=== PATIENT | female | born 2000 | race Hispanic/Latino ===

== ENCOUNTER 2024-01-14 20:59 | Emergency (ER) | payer OTHER ==
[~2024-01-14] VITALS: Ht 152.4 cm; Wt 56.7 kg
[~2024-01-14 20:59] MED LIST: MACROBID 100 M100 MG PO
[2024-01-14 21:07] VITALS: PULSE 85; RESP 18; TEMP 98.8; O2SAT 98
[2024-01-14] MEDS ORDERED: DOXYCYCLINE HY100 MG PO (21:28)
[2024-01-14] MEDS ORDERED: MACROBID 100 M100 MG PO (21:28)
[2024-01-14] MEDS ORDERED: METRONIDAZOLE500 MG PO (21:34)
[2024-01-14] MEDS: CEFTRIAXONE 500 MG VIAL IM ONE (21:46)
[2024-01-16 23:08] LABS: CHLAMYDIA NUC AMP Negative (Negative)
== END 2024-01-14 22:00 | disposition home or self-care (01) ==
LOC: FSED 21:09
DX: R30.0 Dysuria (principal); N73.9 Female pelvic inflammatory disease, unspecified; N88.8 Other specified noninflammatory disorders of cervix uteri; N89.8 Other specified noninflammatory disorders of vagina
CPT/HCPCS: 81003; 81025; 87491; 87591; 99283; J0696